=== PATIENT | female | born 1990 | race African-American/Black ===

== ENCOUNTER 2018-02-19 03:36 | Emergency (ER) | payer SELFPAY ==
[~2018-02-19] VITALS: Ht 157.5 cm; Wt 89.8 kg
[2018-02-19 03:50] VITALS: BP 137/80
[2018-02-19] MEDS ORDERED: HYDR-3135 PO (05:09)
[2018-02-19] MEDS ORDERED: PENI500T PO (05:09)
[2018-02-19] MEDS ORDERED: HYDROcodone/APAP 5/325MG 1 TAB TABLET PO ONE (05:30)
--- NOTE | 2018-02-19 05:48 | PHYS DOC ---
Past Medical History Past Medical History: No Pertinent History Past Surgical History: No Surgical History Alcohol Use: Rarely Drug Use: None Adult General Chief Complaint Chief Complaint: DENTAL PROBLEM HPI HPI Patient is a 28 year old [place] female with history of dental caries and dental erosion left lower bicuspid tooth who presents with increased left mandible pain with facial swelling. Symptoms breast over the past 2 days. No dysphonia and dysphagia, drooling or trismus. No fever chills, posterior oropharyngeal swelling or pain. No other acute symptoms or complaints. [] Review of Systems Review of Systems Review symptoms as per history of present illness. All other review symptoms are negative. All other systems were reviewed and found to be within normal limits, except as documented in this note. Current Medications Current Medications Current Medications Medications (Trade) Dose Ordered Sig/Roshan Start Time Stop Time Status Last Admin Dose Admin Acetaminophen/ Hydrocodone Bitart (Lortab 5/325) 1 tab 1X ONCE 02/19/18 05:30 02/19/18 05:31 DC 02/19/18 05:28 1 TAB Allergies Allergies Allergies Coded Allergies Type Severity Reaction Last Updated Verified No Known Drug Allergies 02/19/18 No Physical Exam Physical Exam Constitutional: Well developed, well nourished, no acute distress, non-toxic appearance. [] HENT: Normocephalic, atraumatic, bilateral external ears normal, oropharynx moist, protrusion of left lower anterior bicuspid with gingival and submandibular swelling, erythema, warmth or fluctuance appreciated. No dysphonia drooling or dysphagia.. [] Eyes: PERRLA, EOMI, conjunctiva normal, no discharge. [] Neck: Normal range of motion, no tenderness, supple, no cervical lymphadenopathy.[] Current Patient Data Vital Signs Vital Signs Date Time Temp Pulse Resp B/P (MAP) Pulse Ox O2 Delivery O2 Flow Rate FiO2 02/19/18 05:28 18 Room Air 02/19/18 03:50 97.8 75 137/80 (99) 97 97.8 EKG EKG [] Radiology/Procedures Radiology/Procedures [] Course & Med Decision Making Course & Med Decision Making Pertinent Labs and Imaging studies reviewed. (See chart for details) [Facial swelling secondary to dental infection. Recommend supportive care with close dental follow-up. Return precautions reviewed.] Dragon Disclaimer Dragon Disclaimer This electronic medical record was generated, in whole or in part, using a voice recognition dictation system. Departure Departure Impression: Primary Impression: Left facial swelling Additional Impression: Dental abscess Disposition: HOME, SELF-CARE Condition: GOOD Patient Instructions: Dental Abscess Additional Instructions: Take newly prescribed medications as directed and follow up with local dentist [facility]. Scripts Penicillin V Potassium (PENICILLIN V POTASSIUM) 500 Mg Tablet 500 MG PO QID for 10 Days, #40 TAB 0 Refills Prov: RADHA LEONE DO 02/19/18 Hydrocodone/Apap 10-325 (NORCO 10-325 TABLET) 1 Each Tablet 1 TAB PO Q8HRS PRN for PAIN MDD 6, #10 TAB 0 Refills Prov: RADHA LEONE DO 02/19/18 Problem Qualifiers RADHA LEONE DO Feb 19, 2018 05:48
== END 2018-02-19 05:40 | disposition home or self-care (01) ==
LOC: ER 03:36
DX: K04.7 Periapical abscess without sinus (principal)
CPT/HCPCS: 99283

== ENCOUNTER 2018-07-18 10:34 | Emergency (ER) | payer SELFPAY ==
[~2018-07-18] VITALS: Ht 157.5 cm; Wt 89.8 kg
[~2018-07-18 10:34] MED LIST: HYDR-3135 PO; PENI500T PO
[2018-07-18 11:00] VITALS: BP 156/98
[2018-07-18] MEDS ORDERED: NAPROXEN 500 MG TABLET PO STA (11:25)
[2018-07-18] MEDS ORDERED: HYDROcodone/APAP 5/325MG 1 TAB TABLET PO ONE (11:30)
[2018-07-18] MEDS ORDERED: LIDOCAINE WITH 8.4% SOD BICARB 3 ML DISP.SYRIN. INJ ONE (11:30)
[2018-07-18] MEDS ORDERED: ACET-704 PO (11:47)
[2018-07-18] MEDS ORDERED: SULF1TAB24 PO (11:47)
--- NOTE | 2018-07-18 11:47 | PHYS DOC ---
Past Medical History Past Medical History: No Pertinent History Past Surgical History: No Surgical History Alcohol Use: Rarely Drug Use: None Adult General Chief Complaint Chief Complaint: ABSCESS HPI HPI Patient is a 28 year old female who presents in the ED with left axilla abscesses that began 4 days ago. Patient denies any fever. Denies any previous history of abscess. Review of Systems Review of Systems Constitutional: Denies fever or chills [] Musculoskeletal: Denies back pain or joint pain [] Integument: Reports left axilla abscess Neurologic: Denies headache, focal weakness or sensory changes [] All other systems were reviewed and found to be within normal limits, except as documented in this note. Current Medications Current Medications Current Medications Medications (Trade) Dose Ordered Sig/Roshan Start Time Stop Time Status Last Admin Dose Admin Acetaminophen/ Hydrocodone Bitart (Lortab 5/325) 2 tab 1X ONCE 07/18/18 11:30 07/18/18 11:31 DC 07/18/18 11:32 2 TAB Diphtheria/ Tetanus/Acell Pertussis (Boostrix) 0.5 ml ONCE ONCE 07/18/18 12:15 07/18/18 12:16 Lidocaine/Sodium Bicarbonate (Buffered Lidocaine 1%) 3 ml 1X ONCE 07/18/18 11:30 07/18/18 11:35 DC 07/18/18 11:33 3 ML Naproxen (Naprosyn) 500 mg 1X STAT 07/18/18 11:25 07/18/18 11:27 DC 07/18/18 11:33 500 MG Allergies Allergies Allergies Coded Allergies Type Severity Reaction Last Updated Verified No Known Drug Allergies 02/19/18 No Physical Exam Physical Exam Constitutional: Well developed, well nourished, no acute distress, non-toxic appearance. [] Skin: Warm, dry, left axilla with an nonindurated from region approximately 2 x 2 centimeters suspicious of an abscess. There is no fluctuance to this area. There is slight erythema over the area. The area is warm and very tender to touch. Back: No tenderness, no CVA tenderness. [] Extremities: No tenderness, no cyanosis, no clubbing, ROM intact, no edema. [] Neurologic: Alert and oriented X 3, normal motor function, normal sensory function, no focal deficits noted. [] Psychologic: Affect normal, judgement normal, mood normal. [] Current Patient Data Vital Signs Vital Signs Date Time Temp Pulse Resp B/P (MAP) Pulse Ox O2 Delivery O2 Flow Rate FiO2 07/18/18 11:00 98.3 100 18 156/98 (117) 99 Room Air 98.3 EKG EKG [] Radiology/Procedures Radiology/Procedures [] Course & Med Decision Making Course & Med Decision Making Pertinent Labs and Imaging studies reviewed. (See chart for details) This is a 28-year-old female patient presenting to the ED today with a abscess on the left axilla. Abscess is no fluctuance. I offered patient to attempt to drain it she states she is afraid of needles and declined. Given a tetanus shot. Discharge and Bactrim. Warm compresses recommended to the area. Provided general surgery for follow-up and instructed to return to the ED at any point symptoms worsen. Dragon Disclaimer Dragon Disclaimer This electronic medical record was generated, in whole or in part, using a voice recognition dictation system. Departure Departure Impression: Primary Impression: Abscess of left axilla Additional Impression: Cellulitis of axilla, left Disposition: 01 HOME, SELF-CARE Condition: STABLE Referrals: NO PCP (PCP) ARMIDA GAMBOA MD follow up in 1 week Patient Instructions: Abscess Additional Instructions: You were evaluated in the emergency room for an abscess on the left axilla. Please apply warm compresses to the area twice a day. We put you on antibiotics. Ensure you complete them. Follow-up with your doctor in 1-2 weeks. Scripts Acetaminophen With Codeine (TYLENOL WITH CODEINE #3 TABLET) 1 Each Tablet 1 TAB PO PRN Q6HRS PRN for PAIN, #20 TAB Prov: MARK GUILLEN AGRONOMY MANAGER 07/18/18 Sulfamethoxazole/Trimethoprim (BACTRIM DS TABLET) 1 Each Tablet 1 TAB PO BID, #20 TAB Prov: MARK GUILLEN AGRONOMY MANAGER 07/18/18 Problem Qualifiers MARK GUILLEN APRN July 18, 2018 11:47
[2018-07-18] MEDS ORDERED: DIPHTH,PERTUSS(ACELL),TET TOX 0.5 ML DISP.SYRIN. VAX IM ONE (12:15)
== END 2018-07-18 12:00 | disposition home or self-care (01) ==
LOC: ER 10:34
DX: L02.412 Cutaneous abscess of left axilla (principal); L03.112 Cellulitis of left axilla
CPT/HCPCS: 90471; 90715; 96372; 99283; 99284

== ENCOUNTER 2018-08-01 19:13 | Emergency (ER) | payer BC ==
[~2018-08-01] VITALS: Ht 157.5 cm; Wt 89.8 kg
[~2018-08-01 19:13] MED LIST changes: +ACET-704 PO; +SULF1TAB24 PO
[2018-08-01 19:30] VITALS: BP 149/89
[2018-08-01] MEDS ORDERED: DEXAMETHASONE 4 MG TABLET PO STA (20:09)
[2018-08-01] MEDS ORDERED: FAMOTIDINE 20 MG TABLET. PO ONE (20:15)
[2018-08-01] MEDS ORDERED: diphenhydrAMINE HCL 25 MG CAPSULE PO ONE (20:15)
--- NOTE | 2018-08-01 20:27 | PHYS DOC ---
Past Medical History Past Medical History: No Pertinent History Past Surgical History: No Surgical History Additional Information: non smoking Alcohol Use: Rarely Drug Use: None Adult General Chief Complaint Chief Complaint: ITCHING HPI HPI Patient is a 28 year old female who presents with itching after she woke up from her nap around 2 hours ago. The itching is diffuse all over her body. Denies any other associated symptoms. Rates her itching 10/10 and has not performed interventions prior to arrival. Review of Systems Review of Systems Constitutional: Denies fever or chills [] Eyes: Denies change in visual acuity, redness, or eye pain [] HENT: Denies nasal congestion or sore throat [] Respiratory: Denies cough or shortness of breath [] Cardiovascular: No additional information not addressed in HPI [] GI: Denies abdominal pain, nausea, vomiting, bloody stools or diarrhea [] : Denies dysuria or hematuria [] Musculoskeletal: Denies back pain or joint pain [] Integument: Denies rash or skin lesions but reports itching. Neurologic: Denies headache, focal weakness or sensory changes [] Endocrine: Denies polyuria or polydipsia [] Complete systems were reviewed and found to be within normal limits, except as documented in this note. Current Medications Current Medications Current Medications Medications (Trade) Dose Ordered Sig/Roshan Start Time Stop Time Status Last Admin Dose Admin Dexamethasone (Decadron) 10 mg 1X STAT 08/01/18 20:09 08/01/18 20:11 DC Diphenhydramine HCl (Benadryl) 25 mg 1X ONCE 08/01/18 20:15 08/01/18 20:16 DC Famotidine (Pepcid) 20 mg 1X ONCE 08/01/18 20:15 08/01/18 20:16 DC Allergies Allergies Allergies Coded Allergies Type Severity Reaction Last Updated Verified No Known Drug Allergies 02/19/18 No Physical Exam Physical Exam Constitutional: Well developed, well nourished, no acute distress, non-toxic appearance. [] HENT: Normocephalic, atraumatic, bilateral external ears normal, oropharynx moist, no oral exudates, nose normal. [] Eyes: PERRLA, EOMI, conjunctiva normal, no discharge. [] Neck: Normal range of motion, no tenderness, supple, no stridor. [] Cardiovascular:Heart rate regular rhythm, no murmur [] Lungs & Thorax: Bilateral breath sounds clear to auscultation [] Abdomen: Bowel sounds normal, soft, no tenderness, no masses, no pulsatile masses. [] Skin: Warm, dry, no erythema, no rash. [] Back: No tenderness, no CVA tenderness. [] Extremities: No tenderness, no cyanosis, no clubbing, ROM intact, no edema. [] Neurologic: Alert and oriented X 3, normal motor function, normal sensory function, no focal deficits noted. [] Psychologic: Affect normal, judgement normal, mood normal. [] Current Patient Data Vital Signs Vital Signs Date Time Temp Pulse Resp B/P (MAP) Pulse Ox O2 Delivery O2 Flow Rate FiO2 08/01/18 19:30 98.4 101 18 149/89 (109) 98 Room Air 98.4 EKG EKG [] Radiology/Procedures Radiology/Procedures [] Course & Med Decision Making Course & Med Decision Making Pertinent Labs and Imaging studies reviewed. (See chart for details) Likely an allergic reaction to unknown substance. No airway involvement. Will give steroid, Benadryl and Pepcid and d/c home. Patient is agreeable. Dragon Disclaimer Dragon Disclaimer This electronic medical record was generated, in whole or in part, using a voice recognition dictation system. Departure Departure Impression: Primary Impression: Allergic reaction Disposition: HOME, SELF-CARE Condition: STABLE Referrals: NO PCP (PCP) Patient Instructions: Itching-Brief Additional Instructions: Please continue to take Benadryl and Pepcid as needed per label instructions to help with itching. Follow up with primary care doctor as needed. Follow up with [facility] if continues for allergy testing. Problem Qualifiers Primary Impression: Allergic reaction Encounter type: initial encounter Qualified Codes: T78.40XA - Allergy, unspecified, initial encounter MADELIN VELARDE [employer]URCH MUSICIAN Aug 01, 2018 20:27
== END 2018-08-01 20:40 | disposition home or self-care (01) ==
LOC: ER 19:13
DX: T78.40XA Allergy, unspecified, initial encounter (principal); X58.XXXA Exposure to other specified factors, initial encounter
CPT/HCPCS: 99284; J8540; Q0163